=== PATIENT | male | born 1985 | race Caucasian/White ===

== ENCOUNTER 2019-04-11 18:29 | Emergency (ER) | payer OTHER ==
[2019-04-11 18:44] VITALS: BP 138/88; PULSE 77; TEMP 98.5; BMI 32.8
[2019-04-11] MEDS ORDERED: DIPHTH,PERTUSS(ACELL),TET 0.5 ML DISP.SYRIN IM ONE ×2 (18:52→19:18)
--- NOTE | 2019-04-11 18:53 | PDOC ---
History of Present Illness - General Chief Complaint: Injury Stated Complaint: LACERATION Time Seen by Provider: 04/11/19 18:44 History Source: Patient Exam Limitations: No Limitations - History of Present Illness Occurred: reports: just prior to arrival Severity: reports: mild, moderate Pain Location: reports: upper extremity (right index finger ) Past History - Travel Traveled outside of the country in the last 30 days: No Close contact w/someone who was outside of country & ill: No - Past Medical History Allergies/Adverse Reactions: Allergies Allergy/AdvReac Type Severity Reaction Status Date / Time No Known Allergies Allergy Verified 04/11/19 18:40 Home Medications: Ambulatory Orders NK [No Known Home Medication] 11/29/13 Ibuprofen [Motrin -] 600 mg PO TID #21 tablet 04/15/15 COPD: No Other medical history: denies - Immunization History Immunization Up to Date: Yes - Suicide/Smoking/Psychosocial Hx Smoking History: Never smoked Number of Cigarettes Smoked Daily: 0 Cigars Per Day: 0 Information on smoking cessation initiated: No Hx Alcohol Use: Yes (socially) Drug/Substance Use Hx: No Substance Use Type: None Review of Systems - Review of Systems Able to Perform ROS?: Yes Is the patient limited Portuguese proficient: Yes Constitutional: Yes: See HPI. No: Symptoms Reported HEENTM: No: Symptoms Reported Respiratory: No: Symptoms reported All Other Systems: Reviewed and Negative *Physical Exam - Vital Signs Last Vital Signs Temp Pulse Resp BP Pulse Ox 98.5 F 77 18 138/88 99 04/11/19 18:38 04/11/19 18:38 04/11/19 18:38 04/11/19 18:38 04/11/19 18:38 - Physical Exam General Appearance: Yes: Nourished, Appropriately Dressed, Apparent Distress, Mild Distress HEENT: positive: CHRIS, Normal ENT Inspection, TMs Normal Neck: positive: Supple. negative: Tender Gastrointestinal/Abdominal: positive: Soft Musculoskeletal: positive: Normal Inspection Extremity: positive: Normal Capillary Refill, Normal Range of Motion (full range of motion to distal phalanx, with 1 cm laceration on the dorsal aspect of right index finger middle phalanx. With crush and contused tissue on the underside of same consistent with a crush injury.), Tender. negative: Normal Inspection Integumentary: positive: Ecchymosis, Bruising Neurologic: positive: broadband engineer II-XII NML intact, Fully Oriented, Alert, Normal Mood/ Affect, Normal Response, Motor Strength 5/5 Procedures - Laceration/Wound Repair Right Finger Wound Length: to 2.5 cm Wound Explored: clean Wound's Depth, Shape: superficial, contused tissue Irrigated w/ Saline: Yes Betadine Prep: Yes Anesthesia: 1% Lidocaine Wound Repaired With: Sutures Number of Sutures: 4 Layer Closure: No Progress Note - Progress Note Progress Note: Crush injury and finger laceration repaired stay.Tetanus/diphtheria/Pertussis booster updated today *DC/Admit/Observation/Transfer Diagnosis at time of Disposition: Finger laceration with complication Qualifiers: Encounter type: initial encounter Qualified Code(s): S61.219A - Laceration without foreign body of unspecified finger without damage to nail, initial encounter - Discharge Dispostion Disposition: HOME Condition at time of disposition: Stable Decision to Admit order: No - Referrals Referrals: Reina Justin MD [Primary Care Provider] - - Patient Instructions Printed Discharge Instructions: DI for Crush Injury, DI for Laceration Repair Additional Instructions: Rest, elevate, avoid strenuous activity or heavy lifting until sutures are removed Leave dressing on for the next 24 hours, Then may remove dressing gently and wash area with soap and water. Reapply bacitracin ointment and dressing daily for the next 5 days On day #6 keep the wound protected and cover as needed until sutures are removed allowing wound to start to dry May use Tylenol or Motrin for pain relief Suture removal in : 7-10 Days Tetanus/diphtheria/pertussis booster was updated today - Post Discharge Activity Forms/Work/School Notes: Back to Work
== END 2019-04-11 19:28 | disposition home or self-care (01) ==
LOC: JERFT 18:29
PROC: 3E0234Z Introduction of Serum, Toxoid and Vaccine into Muscle, Percutaneous Approach (ICD-10-PCS; principal; 2019-04-11)
PROC: 0HQFXZZ Repair Right Hand Skin, External Approach (ICD-10-PCS; 2019-04-11)
DX: S67.190A Crushing injury of right index finger, initial encounter (principal); S61.210A Laceration without foreign body of right index finger without damage to nail, initial encounter; W23.0XXA Caught, crushed, jammed, or pinched between moving objects, initial encounter; Y93.89 Activity, other specified; Y92.89 Other specified places as the place of occurrence of the external cause; Y99.0 Civilian activity done for income or pay
CPT/HCPCS: 73140-TC-RT-FY; 90715; 99281-25

== ENCOUNTER 2022-01-02 14:41 | Inpatient (IN) | payer BC, OTHER ==
[2022-01-02] MEDS ORDERED: morphine CARPU-JECT 4 MG/1 ML DISP.SYRIN IVPUSH ONE ×2 (15:40→19:47)
[2022-01-02] MEDS ORDERED: SODIUM CHLORIDE 1,000 ML IV STA (15:40)
[2022-01-02] MEDS ORDERED: PANTOPRAZOLE SODIUM 40 MG VIAL IVPB ONE (15:40)
[2022-01-02] MEDS ORDERED: PANTOPRAZOLE SODIUM 40 MG/100 ML BAG IVPB ONE (16:28)
[2022-01-02] MEDS ORDERED: morphine SULFATE 4 MG/ML VIAL ONE ×2 (16:28→20:06)
[2022-01-02 16:55] LABS: BASO % 0.4 % (0-2.0); EOS % 1.9 % (0-4.5); HEMATOCRIT 45.6 % (35.4-49); HEMOGLOBIN 15.1 GM/dL (11.7-16.9); LYMPH % 16.8 % (8-40); MCH 26.9 pg (25.7-33.7); MCHC 33.1 g/dl (32.0-35.9); MEAN CELL VOLUME 81.4 fl (80-96); MEAN PLT VOLUME 7.9 fl (7.5-11.1); MONO % 10.6 % (3.8-10.2); NEUT % 70.3 % (42.8-82.8); PLATELET COUNT 189 10^3/uL (134-434); RDW 14.1 % (11.9-15.9); WHITE BLOOD COUNT 9.3 K/mm3 (4.0-10.0)
[2022-01-02 17:25] LABS: CALCIUM 9.3 mg/dL (8.5-10.1)
[2022-01-02 17:26] LABS: ALBUMIN 4.1 g/dl (3.4-5.0)
[2022-01-02 17:29] LABS: CREATININE 1.2 mg/dL (0.55-1.3)
[2022-01-02 17:30] LABS: TOT PROT 7.3 g/dl (6.4-8.2)
[2022-01-02 17:31] LABS: BILIRUBIN,TOTAL 0.9 mg/dL (0.2-1)
[2022-01-02] MEDS ORDERED: PIPERACILLIN/TAZOB 4.5 GM 4.5 GM in DEXTROSE 5%-WATER 100 ML IVPB ONE (19:04)
[2022-01-02] MEDS ORDERED: PIPERACILLIN/TAZOB 4.5 GM 4.5 GM/100 ML BAG IVPB ONE (19:35)
[2022-01-02] MEDS ORDERED: morphine CARPU-JECT 2 MG/1 ML DISP.SYRIN IVPUSH PRN (20:33)
[2022-01-02] MEDS ORDERED: morphine SULFATE 4 MG/ML VIAL IVPUSH PRN (20:40)
[2022-01-02] MEDS: LACTATED RINGERS SOLUTION 1,000 ML IV SCH (22:31)
[2022-01-02 23:10] VITALS: BMI 32.5
[2022-01-02] MEDS ORDERED: ACETAMINOPHEN 1000 MG/100 ML BAG IVPB ONE (23:43)
[2022-01-03] MEDS ORDERED: PIPERACILLIN/TAZOBACTAM 3.375 GM VIAL IVPB ONE ×2 (05:03→09:03)
[2022-01-03] MEDS ORDERED: DEXTROSE 5%-WATER - 50 ML IVPB ONE (05:04)
[2022-01-03] MEDS: PIPERACILLIN/TAZOB 3.375 GM 3.375 GM in DEXTROSE 5%-WATER - 50 ML IVPB SCH ×3 (06:06→14:47)
[2022-01-03] MEDS: LACTATED RINGERS SOLUTION 1,000 ML IV SCH ×3 (06:07→23:09)
[2022-01-03 09:36] LABS: INR 1.21 (0.83-1.09); PROTHROMBIN TIME (PATIENT) 13.9 SEC (9.7-13.0)
[2022-01-03 09:39] LABS: ACTIVATED PTT 33.4 SECONDS (25.2-36.5)
[2022-01-03 09:42] LABS: BASO % 0.4 % (0-2.0); EOS % 2.2 % (0-4.5); HEMATOCRIT 42.6 % (35.4-49); HEMOGLOBIN 14.2 GM/dL (11.7-16.9); LYMPH % 16.2 % (8-40); MCH 27.2 pg (25.7-33.7); MCHC 33.2 g/dl (32.0-35.9); MEAN CELL VOLUME 81.8 fl (80-96); MEAN PLT VOLUME 8.3 fl (7.5-11.1); MONO % 10.9 % (3.8-10.2); NEUT % 70.3 % (42.8-82.8); PLATELET COUNT 173 10^3/uL (134-434); RBC 5.21 M/mm3 (4.00-5.60); RDW 13.8 % (11.9-15.9)
[2022-01-03 10:04] LABS: ALBUMIN 3.8 g/dl (3.4-5.0); BLOOD UREA NITROGEN 16.1 mg/dL (7-18); CALCIUM 9.2 mg/dL (8.5-10.1)
[2022-01-03 10:07] LABS: CREATININE 1.5 mg/dL (0.55-1.3)
[2022-01-03 10:09] LABS: BILIRUBIN,TOTAL 1.4 mg/dL (0.2-1); TOT PROT 6.8 g/dl (6.4-8.2)
[2022-01-03] MEDS ORDERED: BUPIVACAINE HCL/PF 0.5% (5MG/ML) 10 ML VIAL ONE (11:15)
[2022-01-03] MEDS ORDERED: BUPIVACAINE HCL/PF 0.5% (5MG/ML) 10 ML VIAL IJ ONE ×2 (11:37→12:35)
[2022-01-03] MEDS ORDERED: HYDROmorphone HCl 2 MG/ML VIAL ONE (11:40)
[2022-01-03] MEDS ORDERED: PROPOFOL 20 ML ONE ×2 (11:40→12:57)
[2022-01-03] MEDS ORDERED: NEOSTIGMINE METHYLSULFATE 0.5 MG/ML - 10 ML MDV ONE (12:43)
[2022-01-03] MEDS ORDERED: GLYCOPYRROLATE 0.2 MG/1 ML VIAL ONE (12:44)
[2022-01-03] MEDS ORDERED: KETOROLAC TROMETHAMINE 30 MG/1 ML VIAL ONE (12:44)
[2022-01-03] MEDS ORDERED: LIDOCAINE HCL/PF 2% SDV 5ML VIAL ONE (12:44)
[2022-01-03] MEDS ORDERED: DEXAMETHASONE SOD PHOSPHATE 4 MG/1 ML VIAL ONE (12:44)
[2022-01-03] MEDS ORDERED: ONDANSETRON 4 MG/2 ML VIAL IVPUSH PRN ×2 (13:24→13:30)
[2022-01-03] MEDS ORDERED: ACETAMINOPHEN 1000 MG/100 ML BAG IVPB PRN (13:30)
[2022-01-03] MEDS ORDERED: IBUPROFEN 600 MG TABLET (FP) PO PRN (13:32)
[2022-01-03] MEDS ORDERED: oxyCODONE HCL 5 MG TABLET PO PRN (13:33)
[2022-01-04 09:32] LABS: BASO % 0.2 % (0-2.0); EOS % 0.3 % (0-4.5); HEMATOCRIT 37.6 % (35.4-49); HEMOGLOBIN 12.9 GM/dL (11.7-16.9); LYMPH % 15.3 % (8-40); MCH 27.7 pg (25.7-33.7); MCHC 34.3 g/dl (32.0-35.9); MEAN CELL VOLUME 80.8 fl (80-96); MONO % 8.9 % (3.8-10.2); NEUT % 75.3 % (42.8-82.8); PLATELET COUNT 183 10^3/uL (134-434); RBC 4.65 M/mm3 (4.00-5.60); RDW 13.5 % (11.9-15.9)
[2022-01-04 10:16] LABS: CALCIUM 8.4 mg/dL (8.5-10.1)
[2022-01-04 10:17] LABS: BLOOD UREA NITROGEN 10.3 mg/dL (7-18)
[2022-01-04 10:20] LABS: CREATININE 1.3 mg/dL (0.55-1.3)
[2022-01-04 10:21] LABS: TOT PROT 6.1 g/dl (6.4-8.2)
[2022-01-04 10:22] LABS: BILIRUBIN,TOTAL 0.5 mg/dL (0.2-1)
[2022-01-04 10:24] LABS: ALBUMIN 2.9 g/dl (3.4-5.0)
[2022-01-04 13:27] VITALS: BP 130/81; PULSE 80; TEMP 97.9
== END 2022-01-04 18:11 | disposition home or self-care (01) | DRG 343 ==
LOC: JER 14:41 → JERBED 19:16 → INTOOBSV 19:16 → J6S 22:46 → OBSVTOIN 01-03 13:50
PROVIDERS: ADMIT Hospitalist; ATTEND Internal Medicine
PROC: 0DTJ4ZZ Resection of Appendix, Percutaneous Endoscopic Approach (ICD-10-PCS; principal; 2022-01-03 09:00)
DX: K35.80 Unspecified acute appendicitis (principal); R10.31 Right lower quadrant pain
CPT/HCPCS: 36415; 74177-TC; 80053; 83690; 85025; 85610; 85730; 86850; 86900; 86901; 88304-TC; 93005; 93010; 94010; 94760; 99285-25; C9803-CS; G0378; Q9967; U0003; U0005

== ENCOUNTER 2022-06-15 18:49 | Emergency (ER) | payer OTHER ==
[2022-06-15 19:01] VITALS: BP 133/84; PULSE 75; RESP 18; TEMP 98; BMI 33.5
[2022-06-15] MEDS ORDERED: DIPHTH,PERTUSS(ACELL),TET 0.5 ML DISP.SYRIN IM ONE ×2 (19:44→19:45)
[2022-06-15] MEDS ORDERED: CEPHALEXIN MONOHYDRATE 500 MG CAPSULE (UD) PO ONE (20:03)
[2022-06-15] MEDS ORDERED: CEPHALEXIN MONOHYDRATE 500 MG CAPSULE (UD) ONE (20:04)
== END 2022-06-15 20:12 | disposition home or self-care (01) ==
LOC: JERFT 18:49
PROC: 3E0234Z Introduction of Serum, Toxoid and Vaccine into Muscle, Percutaneous Approach (ICD-10-PCS; principal; 2022-06-15)
DX: S92.535B Nondisplaced fracture of distal phalanx of left lesser toe(s), initial encounter for open fracture (principal); S91.115A Laceration without foreign body of left lesser toe(s) without damage to nail, initial encounter
CPT/HCPCS: 73630-TC-LT; 90715; 99284-25